=== PATIENT | female | born 1995 | race Caucasian/White ===

== ENCOUNTER → 2017-09-11 16:08 | Outpatient (CLI) | payer OTHER, SELFPAY | PROVIDERS: Visit Provider Physician Assistant | DX: N39.0 Urinary tract infection, site not specified (principal) | CPT/HCPCS: 87077; 87086 ==

== ENCOUNTER → 2019-02-24 09:17 | Outpatient (CLI) | payer OTHER, SELFPAY | PROVIDERS: Visit Provider Physician Assistant | DX: R30.0 Dysuria (principal) | CPT/HCPCS: 87086 ==

== ENCOUNTER 2023-07-12 13:57 | Emergency (ER) | payer OTHER, SELFPAY ==
[2023-07-12 14:03] VITALS: BP 132/78; PULSE 109; RESP 20; TEMP 36.8; O2SAT 99; BMI 22.3
--- NOTE | 2023-07-12 14:09 | DI.RAD.S_ITS ---
PROCEDURE: XR CHEST 2V INDICATIONS: cough, SOB TECHNIQUE: 2 views of the chest were acquired. COMPARISON: [facility], , CHEST 2 VIEW, 04/19/2010, 14:47. FINDINGS: Surgical changes and devices: None. Lungs and pleura: Lungs are clear. No pleural effusions or pneumothorax. Mediastinum: Mediastinal contours are normal. Heart size is normal. Bones and chest wall: No suspicious bony abnormalities. Soft tissues appear unremarkable. IMPRESSION: Normal two view chest x-ray Approved by: Mikie Lloyd M.D. on 07/12/2023 at 14:30
--- NOTE | 2023-07-12 14:14 | ED_ITS ---
HPI - URI/Sore Throat <Cm Martini PA-C - Last Filed: 07/12/23 16:09> General Chief Complaint: Upper Respiratory Symptoms Stated Complaint: SOB Time Seen by Provider: 07/12/23 14:12 Source: patient Mode of arrival: Ambulatory History of Present Illness HPI Narrative: This is a 28-year-old female presents emergency department due to a productive cough for the last 8 days. States she was also having to mild shortness of breath secondary to the cough. Has been using a nebulizer without significant relief. Does not report any chest pain. States she has had tactile fevers. Related Data Home Medications Medication Instructions Recorded Confirmed Diphenhydramine Hydrochloride 25 mg PO PRN ##30 06/26/11 02/24/19 (BENADRYL) resveratrol-quercetin 100 mg-100 tab PO 09/11/17 02/24/19 mg tablet Previous Rx's Medication Instructions Recorded epinephrine 0.3 mg/0.3 mL 0.3 mg (0.3 mL) IM SEE 10/07/12 injection, auto-injector (EpiPen INSTRUCTIONS ##1 2-Aris) albuterol sulfate 90 mcg/actuation 1 inh inhalation Q6H PRN shortness 07/12/23 aerosol inhaler of breath or wheezing #6.7 grams albuterol sulfate 90 mcg/actuation 1 inh inhalation Q4-6H PRN 07/12/23 breath activated powder shortness of breath #1 ea inhaler,sensor (Proair Digihaler) Allergies Allergy/AdvReac Type Severity Reaction Status Date / Time almond Allergy Severe mouth Verified 07/12/23 14:03 swelling peanut Allergy Severe mouth Verified 07/12/23 14:03 swelling gluten AdvReac unknown Verified 07/12/23 14:03 GRASS-LAWN Allergy Mild HIVES Uncoded 02/26/19 08:36 Bee Venom Allergy Unknown Uncoded 02/26/19 08:36 Review of Systems <Cm Martini PA-C - Last Filed: 07/12/23 16:09> Review of Systems Narrative: GENERAL: Reports tactile fevers, denies chills, fatigue, malaise, , sweats. HEENT: Denies sinus pain, ear pain, sore throat, difficulty swallowing, dizziness. RESPIRATORY: Reports shortness of breath, productive cough denies wheezing, hemoptysis, . CARDIOVASCULAR: Denies chest pain, palpitations, orthopnea, edema, GASTROINTESTINAL: Denies nausea, vomiting, abdominal pain, diarrhea, constipation, melena. : Denies dysuria, frequency, incontinence, hematuria, urinary retention. MUSCULOSKELETAL: denies weakness, joint pain, or bony pain SKIN: Denies rash, skin lesions, or other NEUROLOGIC: Denies weakness, headache, numbness, change in speech, confusion, seizures, incoordination. PSYCHIATRIC: No concerning psychosocial issues. 12 point review of systems is negative except for those stated above Patient History <Cm Martini PA-C - Last Filed: 07/12/23 16:09> Social History (System 02/26/19 @ 08:36 by Svetlana Wilson) Smoking Status: Never smoker Smoking Status: Never smoker Exam <Cm Martini PA-C - Last Filed: 07/12/23 16:09> Narrative Exam Narrative: GENERAL: Well-developed patient, in mild distress. HEAD: Atraumatic. Normocephalic. EYES: Pupils equal round and reactive. Extraocular motions intact. No scleral icterus. No injection or drainage. ENT: Nose without bleeding, purulent drainage. Mild erythema to the posterior oropharynx. NECK: Trachea midline. Non tender EXTREMITIES: No edema or joint tenderness. NEURO: AOx3. SKIN: No rash or erythema of visible areas CARDIOVASCULAR: Tachycardic with regular rhythm without murmurs, gallops, or rubs. RESPIRATORY: Clear to auscultation. Breath sounds equal bilaterally. No wheezes, rales, or rhonchi. GASTROINTESTINAL: Abdomen soft, non-tender, nondistended. BACK: Nontender without deformity or crepitance. No flank tenderness. Initial Vital Signs Initial Vital Signs: Vital Signs Temperature 98.3 F 07/12/23 14:03 Pulse Rate 109 H 07/12/23 14:03 Respiratory Rate 20 07/12/23 14:03 Blood Pressure 132/78 07/12/23 14:03 Pulse Oximetry 99 07/12/23 14:03 Oxygen Delivery Method Room Air 07/12/23 14:03 <Jeannie Tsang DO - Last Filed: 07/12/23 17:38> Initial Vital Signs Initial Vital Signs: Vital Signs Temperature 98.3 F 07/12/23 14:03 Pulse Rate 109 H 07/12/23 14:03 Respiratory Rate 20 07/12/23 14:03 Blood Pressure 132/78 07/12/23 14:03 Pulse Oximetry 99 07/12/23 14:03 Oxygen Delivery Method Room Air 07/12/23 14:03 Course <Cm Martini PA-C - Last Filed: 07/12/23 16:09> Orders Ordered: ED Orders 07/12/23 14:09 XR chest 2V Stat 07/12/23 14:11 Covid-19 + FLU A/B + RSV - PCR Stat 07/12/23 14:40 Strep Grp A by PCR Rapid Stat Discontinued Medications Acetaminophen (Acetaminophen 325 Mg Tablet) 650 mg PO NOW ONE Stop: 07/12/23 14:51 Last Admin: 07/12/23 14:55 Dose: 650 mg Documented By: ISMAEL Ibuprofen (Ibuprofen 400 Mg Tablet) 400 mg PO NOW ONE Stop: 07/12/23 14:52 Last Admin: 07/12/23 14:55 Dose: 400 mg Documented By: ISMAEL Vital Signs Vital signs: Vital Signs - 8 hr 07/12/23 14:03 07/12/23 16:09 Temperature 98.3 F Pulse Rate 109 H 93 H Respiratory Rate 20 24 Blood Pressure 132/78 111/70 Pulse Oximetry 99 98 Oxygen Delivery Method Room Air Room Air <Jeannie Tsang DO - Last Filed: 07/12/23 17:38> Orders Ordered: ED Orders 07/12/23 14:09 XR chest 2V Stat 07/12/23 14:11 Covid-19 + FLU A/B + RSV - PCR Stat 07/12/23 14:40 Strep Grp A by PCR Rapid Stat Discontinued Medications Acetaminophen (Acetaminophen 325 Mg Tablet) 650 mg PO NOW ONE Stop: 07/12/23 14:51 Last Admin: 07/12/23 14:55 Dose: 650 mg Documented By: ISMAEL Ibuprofen (Ibuprofen 400 Mg Tablet) 400 mg PO NOW ONE Stop: 07/12/23 14:52 Last Admin: 07/12/23 14:55 Dose: 400 mg Documented By: ISMAEL Vital Signs Vital signs: Vital Signs - 8 hr 07/12/23 14:03 07/12/23 16:09 Temperature 98.3 F Pulse Rate 109 H 93 H Respiratory Rate 20 24 Blood Pressure 132/78 111/70 Pulse Oximetry 99 98 Oxygen Delivery Method Room Air Room Air MDM - URI/Sore Throat <Cm Martini PA-C - Last Filed: 07/12/23 16:09> Lab Data Labs: Lab Results 07/12/23 07/12/23 Range/Units 14:11 14:40 SARS-CoV-2 (PCR) Negative (Negative) Influenza A (RT-PCR) Flu a negative (NEGATIVE) Influenza B (RT-PCR) Flu b negative (NEGATIVE) RSV (PCR) Positive A (Negative) Group A Strep (PCR) Negative (Negative) Imaging Data Chest x-ray: Radiologist's Impression: [address] [address] XRay Report Signed Patient: Maggie Broderick MR#: [id number] : 1995 Acct:[id number] Age/Sex: 28 / F Date of Service: 07/12/23 Loc: ED Accession Number: [id number] Procedure: XR chest 2V Ordering Provider: Jeannie Tsang D.O. PROCEDURE: XR CHEST 2V INDICATIONS: cough, SOB TECHNIQUE: 2 views of the chest were acquired. COMPARISON: [facility], , CHEST 2 VIEW, 04/19/2010, 14:47. FINDINGS: Surgical changes and devices: None. Lungs and pleura: Lungs are clear. No pleural effusions or pneumothorax. Mediastinum: Mediastinal contours are normal. Heart size is normal. Bones and chest wall: No suspicious bony abnormalities. Soft tissues appear unremarkable. IMPRESSION: Normal two view chest x-ray Approved by: Mikie Lloyd M.D. on 07/12/2023 at 14:30 MDM Narrative Medical decision making narrative: ED course: This is a 28-year-old female presents emergency department due to a productive cough for the left 8 days. RSV positive. Recommended supportive care. Chest x-ray unremarkable. Strep negative as well. COVID and flu negative. Patient used her nebulizer just prior to arrival which may attribute to the tachycardia. CC: Cough Complicating co-morbidities: History of asthma Data collected from: Previous notes Medical records reviewed: Patient was not been to this emergency department in the past. No past medical history. Never smoked. Differential considered, but not limited to: RSV, COVID, flu, pneumonia, acute sinusitis bacterial Exam documented above, pertinent findings include: Unremarkable Lab Test results independently reviewed as above. Pertinent findings: Tested positive for RSV. Imaging studies independently reviewed: Chest x-ray unremarkable Scores Used: None MIPS Elements: None Consultations: None Treatments: None Re-evaluations: None Discussion: Discussed plan with the patient was comfortable with the plan Diagnosis: RSV Disposition: see below, along with detailed discharge instructions that have been reviewed with patient as well as indications for ED re-evaluation and additional outpatient follow up <Jeannie Sharan, DO - Last Filed: 07/12/23 17:38> Lab Data Labs: Lab Results 07/12/23 07/12/23 Range/Units 14:11 14:40 SARS-CoV-2 (PCR) Negative (Negative) Influenza A (RT-PCR) Flu a negative (NEGATIVE) Influenza B (RT-PCR) Flu b negative (NEGATIVE) RSV (PCR) Positive A (Negative) Group A Strep (PCR) Negative (Negative) Discharge Plan Departure Patient Disposition: Home Clinical Impression: Respiratory syncytial virus (RSV) Activity Restrictions/Additional Instructions: Thank you for coming to the [facility] Emergency Department today. As we discussed your chest x-ray was unremarkable. Negative for pneumonia. COVID and flu negative. RSV positive. RSV is viral in nature and should improve over the next week or so. Please use [id number] cough and cold medication until her symptoms improve. Please return to the emergency department if you develop any significant shortness of breath, high fevers, or any other concerning signs or symptoms. I hope you feel better soon. Please follow up with your primary care provider within a week if your symptoms continue. If you do not have a primary care provider please contact the [facility] Resource line at [phone]. They will ask some questions about your medical history and help you get set up with a provider in the community. Prescriptions: New albuterol sulfate 90 mcg/actuation HFA aerosol inhaler 1 inh inhalation Q6H PRN (Reason: shortness of breath or wheezing) Qty: 6.7 0RF Proair Digihaler 90 mcg/actuation aero powdr breath act w/sensor 1 inh inhalation Q4-6H PRN (Reason: shortness of breath) Qty: 1 0RF No Action resveratrol-quercetin 100-100 mg tablet PO Diphenhydramine Hydrochloride (BENADRYL) 25 mg PO PRN Qty: 30 epinephrine [EpiPen 2-Aris] 0.3 MG/0.3 ML auto-injector 0.3 mg IM SEE INSTRUCTIONS Qty: 1 0RF Stand Alone Forms: Patient Portal/API ED Sign-out <Jeannie Tsang, - Last Filed: 07/12/23 17:38> Cosign ED Attending Cosignature Attestation: I was available for consultation.
[2023-07-12 14:53] LABS: Influenza A - CEPHEID Flu A NEGATIVE (NEGATIVE); Influenza B - CEPHEID Flu B NEGATIVE (NEGATIVE); Respiratory Syncytial Virus POSITIVE (Negative)
[2023-07-12 14:54] LABS: COVID-19 CEPHEID 4-PLEX PCR Negative (Negative)
[2023-07-12] MEDS: ACETAMINOPHEN 325 MG TABLET 650 MG PO (14:55)
[2023-07-12] MEDS: IBUPROFEN 400 MG TABLET PO (14:55)
[2023-07-12 15:18] LABS: Strep Grp A by PCR Rapid Negative (Negative)
[2023-07-12 16:09] VITALS: BP 111/70; PULSE 93; RESP 24; O2SAT 98
== END 2023-07-12 16:10 | disposition home or self-care (01) ==
PROVIDERS: Emergency Medicine; Emergency Provider Physician Assistant Medical
DX: B33.8 Other specified viral diseases (principal); Z20.822 Contact with and (suspected) exposure to COVID-19
CPT/HCPCS: 0241U; 71046; 87651; 99283

== ENCOUNTER → 2025-02-10 13:16 | Outpatient (CLI) | payer OTHER, SELFPAY ==
[2025-02-10 13:51] LABS: Bilirubin Urine UA NEGATIVE (NEGATIVE); Color Urine UA YELLOW; Glucose Urine UA NEGATIVE (Negative); Ketones Urine UA NEGATIVE (NEGATIVE); Leukocyte Esterase Urine UA NEGATIVE (NEGATIVE); Nitrite Urine UA NEGATIVE (Negative); Occult Blood Urine UA TRACE-INTACT (Negative); Protein Urine UA NEGATIVE (Negative); Specific Gravity Urine UA 1.020 (1.000-1.035); Urobilinogen Urine UA 0.2 E.U./dL (0.2)
[2025-02-10 13:59] LABS: Appearance Urine UA Slightly Cloudy; Culture Indicated Urine Cult Not Indicated; pH Urine UA 7.0 (4.5-8.0)
== END ==
PROVIDERS: PCP Family Medicine; Referring Provider Family Medicine; Visit Provider Physician Assistant
DX: R10.A0 Flank pain, unspecified side (principal); R30.0 Dysuria
CPT/HCPCS: 81001